=== PATIENT | female | born 1945 | race Caucasian/White ===

== ENCOUNTER → 2016-12-17 | Outpatient (CLI) | payer MEDICARE, OTHER ==
[~2016-12-17] MED LIST: AMOXICILLIN500 M1 PO; ASPIRIN (CHILDR81 MG PO; ASPIRIN325 MG PO; ECOTRIN325 MG PO; GLUCOPHAGE XR750 MG PO; HYZAAR 100-251 EACH PO; HYZAAR 50-12.51 EACH PO; JANUVIA 100 MG100 MG PO; LIPITOR40 MG PO; LOPRESSOR100 MG PO; NORCO 5-325 TA1 EACH PO; NORVASC5 MG PO; SULINDAC150 MG PO; TYLENOL EXTRA500 MG PO; TYLENOL325 MG PO
== END | disposition disaster alternative care site (69) ==
LOC: GBCOE 15:54
DX: Z12.31 Encounter for screening mammogram for malignant neoplasm of breast (principal)
CPT/HCPCS: G0202

== ENCOUNTER 2016-12-25 12:49 | Inpatient (IN) | payer MEDICARE, OTHER ==
[~2016-12-25] VITALS: Ht 154.9 cm; Wt 45.0 kg
--- NOTE | ~2016-12-25 | DS ---
PATIENT'S NAME: LENA PERDOMO [facility] AGE: 71 Y [address] ROOM: [address] [place], [place] [address] [place] [facility] [place]: 12/27/2016 Discharge Summary DISCHARGE DATE: 12/28/2016 FAMILY PHYSICIAN: Waldemar Serna MD ATTENDING PHYSICIAN: Casey ROSEN CONSULTANTS: Dr. Dill. FINAL DIAGNOSES: 1. Encephalopathy secondary to new seizure disorder, now resolved. 2. Diabetes mellitus, uncontrolled. 3. Escherichia coli cystitis. 4. Essential hypertension. 5. Dyslipidemia. 6. History of cerebrovascular accident. 7. Protein-calorie malnutrition, moderate. HOSPITAL COURSE: Please see details of admission in H and P by Dr. Rosen. Briefly, the patient was admitted in encephalopathic state. She was started on IV fluids and pancultured. She was started on ceftriaxone. We did get an EEG for possible seizure. Neurology consulted, did agree with the assessment and started her on Keppra 1000 mg twice daily. The patient was started on Lipitor and aspirin to rule out stroke. Carotid Dopplers and echo were obtained. The patient was continued on her home medications once speech and swallowing had been evaluated. On hospital day #2, the patient was feeling somewhat better, just weak. She denied any tremor. She was working with therapies. Did diagnose a gram-negative cystitis and continued with the ceftriaxone. Glucerna was initiated with meals. On hospital day #2, the patient did start back on some metformin. She was feeling significantly better and ambulating with therapies. The patient did have some cognitive deficits that were concerning for discharge to home and independent living. Discussion with family ensued, and it was felt the patient would best be suited for fdc facility for continued convalescences. On 12/28, we were able to get her to [facility] assisted Facility under the care of Dr. Waldemar Serna. The patient and family were agreeable to this plan, and the patient was discharged in stable condition. DIAGNOSTICS: Two view of the chest were normal. CT of the head without contrast on December 25 showed no acute findings, progressive senescent changes. An MRI of the head on the without contrast showed moderate-to- advance senescent matter changes, an old left occipital and left cerebellar ischemic event. No acute hemorrhages, masses, or findings noted. Blood sugars ranged from 142-284. On admission, chemistry panel was within normal limits. Labs remained stable throughout her stay. Albumin level was 2.9. PATIENT'S NAME: LENA PERDOMO [facility] AGE: 71 Y [address] ROOM: [address] [place], [place] [address] [place] [facility] [place]: 12/27/2016 Discharge Summary DISCHARGE DATE: 12/28/2016 FAMILY PHYSICIAN: Waldemar Serna MD ATTENDING PHYSICIAN: Casey ROSEN Cardiac enzymes were within normal limits. Hemoglobin A1c was 7.1. TSH and free T4 were within normal limits and vitamin B12 was within normal limits. Hemoglobin on admission was 15 and on the day of discharge, it was down to 11. Urinalysis was nitrite positive, and positive for leukocyte esterase, protein, and ketones. On culture, it did show E coli, 50 to 100,000 colonies. Blood cultures were negative. RPR was negative. DISCHARGE INSTRUCTIONS: The patient was discharged to [facility] under Dr. Waldemar Serna with Dr. Dill following. Her diet is diabetic. Code status is full code. Weightbearing status is as tolerated with fall precautions in place. We will continue occupational and physical and speech therapies. Use oxygen as needed to maintain sats greater than 90%. Do Accu-Cheks a.c. and h.s. The patient's rehab potential is good. Discharge potential is good. The patient and family are aware of her condition and prognosis on discharge. DISCHARGE MEDICATIONS: 1. Norvasc 5 mg daily. 2. Aspirin 81 mg daily. 3. Lipitor 40 mg daily. 4. Keppra 1000 mg twice daily. 5. Metoprolol 100 mg twice daily. 6. Tylenol 650 mg twice daily p.r.n. 7. Cipro 500 mg p.o. twice a day for three days. 8. Ultram 50 mg q.12 hours p.r.n. for three days. We do appreciate participating in this patient's care. Thank you very much for the ability to serve her while hospitalized at the [facility]. Time spent coordinating details of the discharge was 37 minutes of which was spent coordinating with consulting physicians, care management, completion of medication reconciliation, and education to the patient and family on the above-mentioned diagnoses. SAVI DUNN FOR MD NANCY SALGUERO/modl /[id number] d: 12/29/16 0254 t: 01/09/17 1240, DISCHARGE SUMMARY
--- NOTE | ~2016-12-25 | ECHO ---
Transthoracic Echocardiography Report (TTE) Demographics Patient Name LENA PERDOMO Date of Study 12/26/2016 Patient Number [id number] Visit Number [id number] Date of 1945 Room Number G3204 Gender Female Number Age 71 year(s) Referring Silas Peña Project Analyst Traci Jiménez, Physician RT,RVT,RDCS Physician Interpreting Olive Lovelace A Apartment Leasing Manager Physician MD Supervising Ordering Silas Peña MD/MLP Physician Nurse Stress Phlebotomist Supervisor/Instructor Conclusions Contractility Score Summary Normal Left Ventricular contractility was noted. Summary The estimated left ventricular ejection fraction is 65%. Mild concentric left ventricular hypertrophy. Trivial tricuspid regurgitation by color Doppler. Procedure Type of Study TTE procedure:2D Echocardiogram, M-Mode, Doppler , Color Doppler. Procedure Date Date: 12/26/2016 Start: 10:33 AM Study Location: Inpatient Portable Technical Quality: Good visualization Indications:CVA. Additional Indications:Possible syncope. Appropriate Use Criteria: 9 Patient Status: Routine HR: 61 bpm BP: 156/88 mmHg M-Mode/2D Measurements LV Diastolic Dimension: 3.4 cm LV Systolic Dimension: 2.24 cm LV Septum Diastolic: 1.15 cm LV PW Diastolic: 1.2 cm AO Root Dimension: 2.9 cm Cardiac Output: 5 l/min AV Cusp Separation: 1.7 cm RV Diastolic Dimension: 2.49 cm LA volume: 34 ml MV EPSS: 0.2 cm LVOT: 2 cm LVOT VTI: 26.1 cm LV Stroke volume: 81.95 ml Doppler Measurements AV Peak Velocity: 1.22 m/s MV Peak E-Wave: 0.75 m/s AV Peak Gradient: 5.95 mmHg MV Peak A-Wave: 0.75 m/s AV Mean Gradient: 3 mmHg MV E/A Ratio: 1.01 LVOT Peak Velocity: 1.01 m/s MV P1/2t: 73 msec TR Gradient:13.99 mmHg PV Peak Velocity: 0.81 m/s Estimated RAP:10 mmHg PV Peak Gradient: 2.6 mmHg Estimated RVSP: 24 mmHg Estimated PASP: 23.99 mmHg E' Septal Velocity: 0.06 m/s A' Septal Velocity: 0.09 m/s MV E/E' Ratio: 13.2 Findings Left Ventricle Mild concentric left ventricular hypertrophy. Diastolic assessment reveals Grade I diastolic dysfunction . Right Ventricle Normal right ventricle structure and function. Left Atrium Normal left atrial size. Right Atrium Normal right atrial size. Mitral Valve Normal mitral valve structure and function. Aortic Valve Normal aortic valve structure and function. Tricuspid Valve Trivial tricuspid regurgitation by color Doppler. Pericardial Effusion No evidence of pericardial effusion. Miscellaneous Visualized portions of the aortic root and ascending aorta appear normal in size. Pleural Effusion No evidence of pleural effusion. Contractility Score LV regional wall motion:(0-Non visualized 1-Normal 2-Hypokinesis 3-Akinesis 4-Dyskinesis 5-Aneurysm) Signature dtt: Anatoly Schaefer dtd: 12/26/16 1033 Physician Self Edit
--- NOTE | ~2016-12-25 | NDGEN ---
PATIENT'S NAME: LENA RIDLEY [facility] AGE: 71 Y [address] ROOM: [address] [address] LOCATION: [facility] [place] ADMIT DATE: 12/25/2016 Neurodiagnostics DISCHARGE DATE: FAMILY PHYSICIAN: DEANN WEINSTEIN MD ATTENDING PHYSICIAN: Casey PHAM PROCEDURE: ELECTROENCEPHALOGRAM DATE OF PROCEDURE: 12/26/2016 CLINICAL DIAGNOSIS: TIME: 9:22 a.m. INDICATION: Ms. Ridley is a 71-year-old female patient who had a new onset of a seizure on the morning prior to the day of this test. She has no history of seizures. At the time of having this EEG, she had been placed on antiepileptic medication, Keppra. It is possible that the patient had a small left posterior stroke in the distant past. FINDINGS: This EEG was an 18-lead EEG which was done with the patient being somewhat poorly cooperative. Photic stimulation was done at the end of the study. There was a lot of movement artifact throughout the study and the best area to determine the background rhythm appeared to be within the posterior leads. Posterior lead rhythm revealed 8-9 hertz approaching alpha rhythm with normal amplitudes of 25-30 microvolts. This rhythm remained stable throughout the whole recording. Yet, there were occasional blinking artifacts in the frontal eye longoria, obscured the reading. Appeared to be [id number]-svd-[id number] pattern seen, particularly in the posterior right occipital longoria, that would march along periodically. These appeared to be epileptiform in nature. There were no seizures recorded, and the rhythm remained stable throughout. IMPRESSION: There appeared to be spikes that would occasionally be seen in the occipital region of the brain, more specifically into the right parietal and occipital lobes. It should be noted that the patient did have a stroke in the left occipital lobe, so the clinical correlation is unclear. No other clear epileptiform features were seen and no seizures were recorded. Otherwise, the background rhythm was within normal speed and amplitude. YOLIE MOONEY MD PATIENT'S NAME: LENA RIDLEY [facility] AGE: 71 Y [address] ROOM: [address] [address] LOCATION: [facility] [place] ADMIT DATE: 12/25/2016 Neurodiagnostics DISCHARGE DATE: FAMILY PHYSICIAN: DEANN WEINSTEIN MD ATTENDING PHYSICIAN: Casey PHAM /[id number] dtt: 12/27/16 1444 , YOLIE MOONEY dtd: 12/26/16 1757
--- NOTE | ~2016-12-25 | ER ---
PATIENT'S NAME: LENA PERDOMO [facility] AGE: 71 Y [address] ROOM: [place] [address] LOCATION: [facility] [place] ADMIT DATE: 12/25/2016 ER/Outpatient Report DISCHARGE DATE: FAMILY PHYSICIAN: DEANN WEINSTEIN MD ATTENDING PHYSICIAN: Casey PHAM Admission date and time documented in the medical record. I saw the patient at 1300 hours. CHIEF COMPLAINT: Confusion, not eating or drinking over the past 2 days, unkempt, incontinent stool and urine. HISTORY OF PRESENT ILLNESS: This patient is a 71-year-old female, who lives alone in her home, self- sufficient. Her family knocked on her door yesterday and there was no answer. They thought that she was gone. They came to her house today and found her lying on the bedroom floor in her home. She was confused. She was unable to give any history of what happened over the past 2 days. The daughter said it looked like she had not ate or drank very much over the past 2 days. She was last known to be normal on 12/23/2016. The patient was brought to the emergency room by a private vehicle for evaluation. The patient was obviously incontinent of stool and urine. She had mental status change with confusion, disorientation, and just seemed apathetic, which was not her norm. Daughter says that this is not her normal physical and mental condition. She was unkempt, had her bra backwards, and other unusual presentations. The patient denies headache, eyes, ears, nose, throat, neck pain, chest pain, back pain, abdominal pain. She had no fever here in the emergency department. The patient was disoriented to place and time. She did not know her age. She was able to follow commands fairly well. She has a history of non-insulin- dependent diabetes mellitus type 2, on metformin. Her Accu-Chek was in the 140s, I believe. She has no history of stroke, TIA, or seizure disorder. No psych issues. HOME MEDICATIONS: See attached medication list. ALLERGIES: NONE. SOCIAL HISTORY: Nonsmoker and nondrinker. SIGNIFICANT PAST MEDICAL HISTORY: Zot-uilynxd-amnmbffyz diabetes mellitus type 2, hypertension, dyslipidemia, PATIENT'S NAME: LENA PERDOMO [facility] AGE: 71 Y [address] ROOM: [address] [place], [place] [address] LOCATION: [facility] [place] ADMIT DATE: 12/25/2016 ER/Outpatient Report DISCHARGE DATE: FAMILY PHYSICIAN: DEANN WEINSTEIN MD ATTENDING PHYSICIAN: Casey PHAM osteoporosis. OPERATIONS: Breast biopsy, left total hip arthroplasty. ROS: Unable to get review of systems from the patient, but essentially are negative except for that stated in the history of the present illness. PHYSICAL EXAMINATION: VITAL SIGNS: Temperature 97.8, tympanic; pulse 86; respirations 16; blood pressure 155/87; O2 saturation on room air is 100%. HEAD: Normocephalic. EYES: Extraocular muscles are intact. PERRL. Sclerae and conjunctivae are clear and nonicteric. EARS, NOSE, THROAT: Clear. Mucous membranes are dry. NECK: No nuchal rigidity. No thyromegaly or cervical adenopathy. No tenderness. SPINE: Negative. LUNGS: Clear. Good air flow. No rales, rhonchi, or wheezes. HEART: Regular. Pulses are palpable. No chest wall or ribcage pain to palpation. ABDOMEN: Soft, nondistended, nontender. Good bowel tones. No organomegaly or abnormal masses palpable. EXTREMITIES: Without peripheral edema, cyanosis, or deformity. NEURO: The patient is awake, cooperative. She is confused and disoriented to place and time. No lateralizing weakness, numbness, tingling, or loss of function. Motor and sensory appears to be intact. NIH stroke scale is 4. SKIN: Clear. : The patient was incontinent, has stool on her legs and feet, smell of urine. LABORATORY DATA AND X-RAYS: CT scan of the head showed no acute bleed, midline shift, mass effect, or skull fracture. I did do an MRI scan of the brain that showed advanced white matter disease and moderate atrophy. No bleed, tumor, or mass. CT scan and MRI scans were read by Radiology, see dictated transcribed reports. Arterial blood gases showed a pH of 7.43, pCO2 of 35, pO2 of 85 with an O2 saturation of 97%. Urine showed 5-10 whites, 5-10 reds, 0-2 epithelial cells, few bacteria, 2+ amorphous material per high-powered field, positive nitrites on dipstick. Culture pending. Two blood cultures drawn, results are pending. Procalcitonin was less than 0.05. CMS was normal except for an elevated glucose of 143. Elevated BUN of 30. CK-MB was 1.5. CRP was 1.07. Thyroid was normal. ProBNP was elevated at 660. White count was 9900, 82 segs, 11 PATIENT'S NAME: LENA PERDOMO [facility] AGE: 71 Y [address] ROOM: [address] [address] LOCATION: [facility] [place] ADMIT DATE: 12/25/2016 ER/Outpatient Report DISCHARGE DATE: FAMILY PHYSICIAN: DEANN WEINSTEIN MD ATTENDING PHYSICIAN: Casey PHAM, 7 monos, hemoglobin was 15 with hematocrit 43.9, platelet count is 187,000. Sedimentation rate was 17. PTT was 23. Pro-time is 10.1 with an INR of 0.96. EKG showed sinus rhythm. No acute ST elevation, ischemic change, or arrhythmia. Chest x-ray showed no acute infiltrate or changes. EMERGENCY DEPARTMENT COURSE: I did start the patient on IV normal saline, fluids 1 L then at 150 mL an hour. IMPRESSION: 1. Altered mental status, etiology uncertain. 2. Dehydration with poor fluid and solid oral intake over the past 2 days. 3. Incontinence of stool and urine. 4. Hypertension. 5. Bbu-tlftryv-qlpollvho diabetes mellitus type 2. 6. Dyslipidemia. 7. Osteoporosis. PLAN: Discussed the patient with hospitalist, Dr. Wilde. Dr. Wilde is coming to the emergency room to evaluate the patient and admit the patient to the hospital for further evaluation and treatment. Discussion ensued with the patient and her family in regard to my findings and recommendations, they understand. Accumulated critical care time 30 minutes. CORBIN TAYLRO MD SDS/modl /[id number] d: 12/25/16 2353 t: 12/26/16 0604, OUTPATIENT REPORT
--- NOTE | ~2016-12-25 | HP ---
PATIENT'S NAME: LENA PERDOMO [facility] AGE: 71 Y [address] ROOM: [place] [address] [place] [facility] [place] DATE: 12/25/2016 History & Physical DISCHARGE DATE: FAMILY PHYSICIAN: DEANN WEINSTEIN MD ATTENDING PHYSICIAN: Casey PHAM DATE OF SERVICE: CHIEF COMPLAINT: Altered mental status. HISTORY OF PRESENT ILLNESS: The patient is a 71-year-old female with past medical history of osteoporosis, diabetes mellitus type 2, hyperlipidemia, hypertension, and history of CVA; diagnosed today on MRI; who presents here with altered mental status. The patient is a poor historian and does not remember the events that happened. Most of the information is acquired from the family member, especially daughter. Apparently, the patient was in good health on Saturday, last seen well was Saturday evening; however, the patient was found down today at home on the floor with urinary and bowel incontinence. The patient was found to be confused and somnolent. The patient was unable to answer appropriately to a family member and could not explain what had happened. Ambulance was called in and the patient was brought into our emergency department for further evaluation. In the emergency department, the patient is somewhat alert and oriented. Continued to deny the occurrence of what happened at home. She thinks she is here because she was brought here by her family member. Upon further investigation and discussion with the family member, the patient was in good health on Saturday. They reported that she might have some forgetfulness in the past, but report that she is alert and awake and is able to do her daily activities and lives by herself, cook for herself, and handle her finances. PAST MEDICAL HISTORY: 1. Osteoporosis. 2. Diabetes mellitus type 2. 3. Hyperlipidemia. 4. Hypertension. 5. Distant history of CVA, diagnosed today on MRI. PAST SURGICAL HISTORY: Left hip surgery. FAMILY HISTORY: Hypertension and coronary artery disease in her father and dementia in her mother. PATIENT'S NAME: LENA PERDOMO [facility] AGE: 71 Y [address] ROOM: [place] [address] [place] [facility] [place]MIT DATE: 12/25/2016 History & Physical DISCHARGE DATE: FAMILY PHYSICIAN: DEANN WEINSTEIN MD ATTENDING PHYSICIAN: Casey PHAM SOCIAL HISTORY: Does not smoke. Does not drink alcohol. 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 MEDICATIONS: See MAR. REVIEW OF SYSTEMS: All systems have been reviewed and are negative except for what is mentioned in the HPI. PHYSICAL EXAMINATION: VITAL SIGNS: Temperature is 98.6, blood pressure 139/85, heart rate of 77, and respiratory rate of 20. GENERAL: The patient is alert and awake, in no acute distress. HEAD: Normocephalic and atraumatic. EYES: Sclerae nonicteric. Extraocular muscles intact. NASAL: No nasal discharge. Top of nasal bridge showed some mild bruising. NECK: No JVD. CHEST: Clear to auscultation bilaterally. HEART: Regular rate and rhythm. No murmurs, rubs, or gallops heard. ABDOMEN: Soft, nontender, and nondistended. Bowel sounds present. SKIN: Warm to touch. MUSCULOSKELETAL: Range of motion intact. No obvious effusion seen. TSO: The patient is alert and oriented x3. Motor and sensory are grossly intact. On evaluation of eye examination, the patient was not able to follow commands to fully examine her peripheral vision. LABORATORY DATA: ABG; pH of 7.43 and pCO2 of 35. CPK of 54. CBC shows white blood cell count of 9.9, hemoglobin of 15, and platelet of 187. Renal function panel shows BUN of 30, CO2 of 26, potassium of 3.7, sodium of 141, and creatinine of 0.8. UA shows white blood cell count 5 to 10. IMAGING: MRI shows progressive mild cerebral atrophy with senescent white matter disease since prior study. Also shows motor atrophy and advanced periventricular and senescent white matter disease. Shows old left occipital pole encephalomalacia, likely reflecting an old ischemic event. Also suspicious for old ischemic event in the cerebellum of the left side as well. ASSESSMENT AND PLAN: 1. The patient is a 71-year-old female with past medical history of diabetes, hyperlipidemia, hypertension, and osteopenia, who presents here PATIENT'S NAME: LENA PERDOMO [facility] AGE: 71 Y [address] ROOM: [place] [address] [place] [facility] [place]MIT DATE: 12/25/2016 History & Physical DISCHARGE DATE: FAMILY PHYSICIAN: DEANN WEINSTEIN MD ATTENDING PHYSICIAN: Casey PHAM with acute encephalopathy. Etiology most likely secondary to seizure- like activity as the patient was found down today with bowel and urinary incontinence and was found to have some confusion, which I suspect might be postictal confusion. The patient's mentation is improving currently compared to initial presentation. Etiology of seizure most likely secondary to history of old cerebrovascular accident. On further investigation and discussion with the family, the patient also had some unexplained fall in the past, which resulted on her left hip fracture. Thus, the patient might have some underlying seizure-like activity. We will acquire EEG. We will put the patient on seizure precaution. We will consult Neurology for possible seizure evaluation. Syncope is also entertained as a workup for also her history of cerebrovascular accident that is diagnosed today. We will also acquire echocardiogram and carotid vascular Doppler. I will keep the patient on telemonitor. 2. Old cerebrovascular accident. The patient and family are not aware of the patient having history of cerebrovascular accident, however, MRI shows possible old cerebrovascular accident. The patient is on Lipitor. We will increase Lipitor to 80 mg and add aspirin. Initial EKG shows normal sinus rhythm. We will keep the patient on telemonitor to assess for arrhythmia. We will acquire echocardiogram and carotid Doppler. 3. Hypertension, stable. Continue medication. 4. Hyperlipidemia. Continue medication. 5. Dehydration. The patient's BUN is noted to be elevated and the patient was found down. We were not actually quite sure for how long she has been down and I suspect she might be dehydrated. She is currently on IV fluids. 6. Urinary tract infection. The patient's UA shows pyuria. Given the presentation, we will treat for urinary tract infection. Urinary culture pending. The patient also on ceftriaxone. 7. Diabetes mellitus type 2, holding metformin, on sliding scale insulin. 8. Malnutrition. On physical, the patient was noted to be malnutrition. The patient has protein-calorie malnutrition. The patient currently on a general diet. Once stable, to have dietary consult. MD YESIKA MOTA/modl /[id number] D: [id number] T: [id number] HISTORY & PHYSICAL
[~2016-12-25 12:49] MED LIST changes: -AMOXICILLIN500 M1 PO; -ASPIRIN (CHILDR81 MG PO; -HYZAAR 100-251 EACH PO; -JANUVIA 100 MG100 MG PO; -NORVASC5 MG PO; -SULINDAC150 MG PO
[2016-12-25 13:29] LABS: BASOPHIL % 0.3 %; EOSINOPHIL % 0.1 %; HEMATOCRIT 43.9 % (33.0-46.0); IMMATURE GRANULOCYTE % 0.3 %; LYMPHOCYTE % 10.5 %; MCH 31.4 pg (27.0-34.0); MCHC 34.2 gm/dL (32.0-36.5); MONOCYTE # 0.7 K/uL (0.0-1.0); MONOCYTE % 6.7 %; NEUTROPHIL # (ANC) 8.2 K/uL (1.8-7.8); NEUTROPHIL % 82.1 %; NRBC % 0 /100WBC (0-0.00); PLATELET COUNT 187 K/uL (150-450); RDW-CV 12.5 % (11.9-14.6); WBC 9.9 K/uL (4.0-11.0)
[2016-12-25 13:31] LABS: RBC 4.77 M/uL (3.50-5.50)
[2016-12-25 13:35] LABS: INR - (THERAPEUTIC) 0.96 (0.92-1.07); PROTIME 10.1 SECONDS (9.8-11.4); PTT 23 SECONDS (25-32)
[2016-12-25 13:51] LABS: ALBUMIN 3.8 gm/dL (3.5-5.0); ALK PHOS 57 IU/L (33-138); ALT 14 IU/L (12-78); ANION GAP 16.7 (10.0-19.0); AST 12 IU/L (10-40); BLOOD UREA NITROGEN 30 mg/dL (6-24); CALCIUM 9.2 mg/dL (8.5-10.5); CHLORIDE 102 mMol/L (96-110); CO2 26 mMol/L (22-32); CREATININE 0.8 mg/dL (0.5-1.1); ESTIMATED GFR (MDRD EQUATION) > 60; POTASSIUM 3.7 mMol/L (3.7-5.1); SODIUM 141 mMol/L (135-145); TOTAL BILIRUBIN 0.8 mg/dL (0.0-1.5); TOTAL PROTEIN 7.1 g/dL (6.0-8.4)
[2016-12-25 14:20] LABS: BLOOD URINE 150 /UL (NEGATIVE); COLOR URINE YELLOW (YELLOW); GLUCOSE URINE NEGATIVE (NEGATIVE); KETONE URINE 150 mg/dL (NEGATIVE); LEUKOCYTES URINE 25 /UL (NEGATIVE); NITRITE URINE POSITIVE (NEGATIVE); PROTEIN URINE 500 mg/dL (NEGATIVE); TURBIDITY URINE 2+ (CLEAR); UROBILINOGEN URINE NORMAL (NORMAL)
[2016-12-25 14:53] LABS: AMORPHOUS URINE 2+ (NEGATIVE); BACTERIA URINE FEW (NEGATIVE); EPITHELIAL URINE 0-2 #/HPF (NEGATIVE)
[2016-12-25 16:09] LABS: BICARBONATE 23.2 mmol/L (18.0-23.0); PCO2 35 mmHg (35-45); PO2 85 mmHg (80-90)
--- NOTE | 2016-12-25 21:15 | NUR ---
71 Y/O FEMALE ADMITTED FOR ACUTE ENCEPHALOPATHY AND UTI. PT HAS HER THREE CHILDREN AT HER BEDSIDE & THEY STATE SHE SEEMS MENTALLY FOGGY TODAY BUT WAS FINE MENTALLY LAST SATURDAY. PT ALSO IS NOTED TO HAVE A BRUISE ON HER MID FOREHEAD BETWEEN HER EYES & A FAT LIP WITH A SORE ON HER LT BOTTOM LIP. WHEN ASKED PT DOES NOT REMEMBER FALLING OR BUMPING INTO ANYTHING IN THE PAST SEVERAL DAYS. ALLERGIES - [facility] SURGICAL & MEDICAL HISTORY - BRST BIOPSY 1969'S, BENIGN ABD TUMOR YRS AGO, LT PAN 08/19/16 FROM A FALL & LT HIP FRACTURE ON 08/18/16. HTN, HIGH CHOL, DMII DIAGNOSED IN THE FALL OF 2014, PT IS ON METFORMIN. OSTEOPOROSIS, ARTHRITIS. PT IS ABLE TO ANSWER QUESTIONS WHEN ASKED. REPORT GIVEN TO PT PRIMARY CARE NURSE JORDAN MOSS ADM EDUCATION DONE WITH PT & FAMILY
--- NOTE | 2016-12-26 04:22 | NUR ---
Significant Event: Patient is alert and oriented x 3. Forgetful. Patient stares off and is slow to respond at times. Needs verbal cues. Up with 1 assist, walker, and gait belt to bathroom. VSS on room air. On telemetry, no calls. Denies any pain. Left forearm IV with NS running at 100 ml/hr. Receiving intermittent IV antibiotics. ACHS accuchecks. Started on PO Keppra. On seizure precautions. No seizure activity noted this shift. Patient is cooperative with cares. Follow up: EEG, ECHO, and carotid doppler this am.
--- NOTE | 2016-12-26 14:58 | NUR ---
Significant Event: Patient is alert and oriented x3, forgetful at times, but has been really awake today. Negative CAM. Able to follow commands. The only command she was not able to follow was following my finger with her eyes. Her eyes stayed stationary. Unsteady when she walks and is wobbly. Working with PT and OT. Seizure precautions. Denies double vision today. EEG, carotid dopplers, and echo completed today. Bag and partial shower completed. Tele on, no calls. L)FA IV, fluids infusing. Needs a lot of verbal cues at times. Bed and chair alarms on. Accuchecks AC/HS. Cooperative with cares. Pleasant.
--- NOTE | 2016-12-26 15:47 | NUR ---
Received a consult to meet with patient's family to discuss possible placement. I met with maureen Newell and patient at 1240 today. Introduced myself and explained the role of the CM department. Osiris and I stepped out of the room to talk about placement options. She states that the family had thought patient was doing well caring for herself at home, but now they aren't so sure. Per Osiris patient has lost about 14 pounds in the past month or so. The family is just starting the process of looking at independent living apartments, CUSTODIAL, or SNF's. I did briefly explain to daughter that at this time patient is listed as observation and in order to meet the Medicare criteria for Medicare to help cover the initial 20 days at a SNF patient would need to be an inpatient status for 3 overnight stays. At this time we have not met that criteria. Osiris and I discussed looking at Independent Living apartments, CUSTODIAL's, SNF's and/or having caregivers come into the home. I explained to her, that at this time all of these options would be private/self pay for patient and family. I will leave a packet of material in patient's room for the family to look over. I provided them with a list of Caregivers from the [facility], and information from [facility], [facility], [facility], [facility], and [address] to give them an idea of cost. Will follow up with patient and family tomorrow. Osiris states she would also like help from dietary or nursing to talk to patient about maintaining at proper diet at home, getting dentures so she can eat more items, and getting her eyes checked. I will share this with the hospitalist following patient.
--- NOTE | 2016-12-27 04:08 | NUR ---
Significant Event: Patient alert and oriented at first, but becomes very confused at times. Stated she was not in her correct room and wanted to go to her other bed when trying to get her from the chair to bed. After in bed states that finally we put her in the right bed. Fine rest of night. Denies pain. Slept well. NEeds verbal cues when ambulating and needs reminders to go to the bathroom. NS running at 100ml to L) forearm. Telemetry on no calls. Seizure precuations. Vitals stable and on room air. ACHS accuchecks. On keppra. Bed alarm on. able to follow finger better on second neurocheck. Follow up: Monitor neuro checks
[2016-12-27 05:09] LABS: BASOPHIL % 0.4 %; EOSINOPHIL # 0.1 K/uL (0.0-0.5); EOSINOPHIL % 1.2 %; HEMOGLOBIN 10.1 g/dL (10.0-15.0); IMMATURE GRANULOCYTE % 0.3 %; LYMPHOCYTE # 1.9 K/uL (0.8-4.0); LYMPHOCYTE % 28.3 %; MCH 31.3 pg (27.0-34.0); MCHC 33.7 gm/dL (32.0-36.5); MCV 92.9 fl (83.0-98.0); MONOCYTE # 0.6 K/uL (0.0-1.0); MONOCYTE % 8.6 %; MPV 10.2 fl (9.4-12.4); NEUTROPHIL # (ANC) 4.2 K/uL (1.8-7.8); NEUTROPHIL % 61.2 %; NRBC % 0 /100WBC (0-0.00); PLATELET COUNT 125 K/uL (150-450); RBC 3.23 M/uL (3.50-5.50); RDW-CV 12.6 % (11.9-14.6); WBC 6.9 K/uL (4.0-11.0)
[2016-12-27 05:26] LABS: ANION GAP 10.3 (10.0-19.0); BLOOD UREA NITROGEN 21 mg/dL (6-24); CALCIUM 7.5 mg/dL (8.5-10.5); CHLORIDE 113 mMol/L (96-110); CO2 26 mMol/L (22-32); CREATININE 0.6 mg/dL (0.5-1.1); ESTIMATED GFR (MDRD EQUATION) > 60; POTASSIUM 3.3 mMol/L (3.7-5.1)
[2016-12-27 05:27] LABS: SODIUM 146 mMol/L (135-145)
--- NOTE | 2016-12-27 12:31 | NUR ---
Met with patient today while she sat in her recliner. Patient states that her plan is to return to her home in [place] at discharge. She states she has no desire to go to a halfway facility. She thinks that she will be able to care for herself at home. She states she still drives and helps care for her young grandchildren. I talked with her about a Life Line/Life Alert and she was agreeable to considering this. I will bring information about the Life Line to her room for her and family to review. At 1149 I had a phone call from Mckayla HOU stating she thinks patient needs to go to an CHUCK. I explained to Mckayla that I agree, but family does not have the funds to pay for an CHUCK. Patient is not able to go to a SNF at this time and have medicare help cover the cost because she has not had the three qualifying overnight stays as an inpatient. Will touch base with daughter Osiris to see what family plans to do for patient.
--- NOTE | 2016-12-27 16:10 | NUR ---
Significant Event:Is A/O but at times will answer questions with strange responses.IV put to SL this afternoon.Tele on,no calls.Has been amb with walker & 1 assist.Is incont of urine at times if not reminded to go to the bathroom.No c/o pain.Looking at going to skilled unit. Follow up:
--- NOTE | 2016-12-28 05:10 | NUR ---
Pt. AA&OX3 but confused at times and needs reorientating. Denies pain. Slept well with void x2. Incontinent both times. On TELE - no calls. IV L) S.L. RA. VSS. Appetite well. ACHS. Looking at going to skilled facility possibly today. Pleasant. Bed and chair alarm on at all times. 1A with walker and gaitbelt.
[2016-12-28 05:21] LABS: BASOPHIL % 0.4 %; EOSINOPHIL # 0.1 K/uL (0.0-0.5); EOSINOPHIL % 1.1 %; HEMATOCRIT 32.7 % (33.0-46.0); IMMATURE GRANULOCYTE % 0.2 %; LYMPHOCYTE # 1.7 K/uL (0.8-4.0); MCH 31.4 pg (27.0-34.0); MCHC 33.6 gm/dL (32.0-36.5); MCV 93.4 fl (83.0-98.0); MONOCYTE # 0.6 K/uL (0.0-1.0); MONOCYTE % 7.8 %; MPV 10.7 fl (9.4-12.4); NEUTROPHIL # (ANC) 5.8 K/uL (1.8-7.8); NEUTROPHIL % 70.5 %; NRBC % 0 /100WBC (0-0.00); PLATELET COUNT 138 K/uL (150-450); RDW-CV 12.6 % (11.9-14.6); WBC 8.2 K/uL (4.0-11.0)
[2016-12-28 05:39] LABS: ANION GAP 11.1 (10.0-19.0); BLOOD UREA NITROGEN 23 mg/dL (6-24); CHLORIDE 111 mMol/L (96-110); CO2 25 mMol/L (22-32); CREATININE 0.6 mg/dL (0.5-1.1); ESTIMATED GFR (MDRD EQUATION) > 60; POTASSIUM 4.1 mMol/L (3.7-5.1); SODIUM 143 mMol/L (135-145)
--- NOTE | 2016-12-28 07:56 | NUR ---
Yesterday at 1630 I ran into LAURA Tavera for [facility], in the parking lot and he states they can accept Melissa today. At 0740 I placed a call to daughter Osiris and let her know that [facility] can accept and asked if family is in agreement. Osiris said yes, the family agrees with transfer to [facility]. Osiris is planning on working the morning and then being here by 1300. She would like for us to try to discharge in the afternoon so she can be here with patient. I placed a call to LAURA Tavera at [facility] [phone] at [phone], but he was not in yet. I left him a voicemail asking him to call me with a cotton picking machine operator time for patient. I let him know that family prefers a discharge time of early afternoon if their van is available. Will wait to here back from [facility]. Packet is started and ID screen is in packet.
--- NOTE | 2016-12-28 12:33 | NUR ---
Pt.is A/O but at times does get alittle mixed up or forgetful.Has some Lt.shoulder discomfort today.She thinks maybe she layed on it wrong last nite.Has been up with 1 assist & walker.Is eating & drinking well.At times she is incont.of urine.Was on accuchecks while in hospital.
--- NOTE | 2016-12-28 13:15 | NUR ---
Nurse to nurse report given to Janel at [facility] at 1300.Then Melissa was dismissed at 1315 per w/c to dedra meyer.by daughter & limb driver.Transfer papers were sent with [facility] ajay.
== END 2016-12-28 13:15 | DRG 71 ==
LOC: GMED 12:49 → GMSU 17:05
PROVIDERS: Emergency Medicine; Internal Medicine; ADMIT Internal Medicine
PROC: B246ZZZ Ultrasonography of Right and Left Heart (ICD-10-PCS; principal; 2016-12-26)
PROC: 4A00X4Z Measurement of Central Nervous Electrical Activity, External Approach (ICD-10-PCS; principal; 2016-12-26)
DX: G93.40 Encephalopathy, unspecified (principal); E44.0 Moderate protein-calorie malnutrition; N30.00 Acute cystitis without hematuria; E11.65 Type 2 diabetes mellitus with hyperglycemia; Z68.1 Body mass index [BMI] 19.9 or less, adult; G40.909 Epilepsy, unspecified, not intractable, without status epilepticus; Z86.73 Personal history of transient ischemic attack (TIA), and cerebral infarction without residual deficits; M19.90 Unspecified osteoarthritis, unspecified site; E78.5 Hyperlipidemia, unspecified; I10 Essential (primary) hypertension; E86.0 Dehydration; Z79.4 Long term (current) use of insulin; B96.20 Unspecified Escherichia coli [E. coli] as the cause of diseases classified elsewhere
CPT/HCPCS: G0378; G8978; G8979; G8980; G8984; G8985; G8986; G9168; G9169; G9170; J0696; J1644; J7030

== ENCOUNTER 2017-01-25 21:07 | Observation (INO) | payer MEDICARE, OTHER ==
[~2017-01-25] VITALS: Ht 154.9 cm; Wt 44.5 kg
--- NOTE | ~2017-01-25 | ER ---
PATIENT'S NAME: LENA PERDOMO [facility] AGE: 71 Y [address] ROOM: [address] [place], [place] [address] [place] [facility] [place]: 01/25/2017 ER/Outpatient Report DISCHARGE DATE: FAMILY PHYSICIAN: PHYSICIAN, UNKNOWN ATTENDING PHYSICIAN: NELSON TELLES Admission Time: 2107 hours. Time of Evaluation: 2130 hours. CHIEF COMPLAINT: Nausea, vomiting, generalized weakness. HISTORY OF PRESENT ILLNESS: Lena is a 71-year-old, female who presents with her son and daughter to the emergency room with a 2-day history of nausea, vomiting, and generalized weakness. 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 Later on in the day in the evening, she started to have a little bit of generalized weakness and nausea. This morning and throughout the day, she has vomited multiple times, has become weaker and weaker. Her son and daughter tell me they did take her to the dentist today and she does have some infection in her upper gums in which she was started on amoxicillin 500 mg 1 p.o. t.i.d. She has just had 1 dose this evening around 7:00 p.m. The patient is a diabetic, blood sugar this morning was 111. The patient recently was hospitalized here at [facility], in which these records were reviewed by myself. I did review this also with Dr. Prater. The patient did have an EEG as there was a concern for a new underlying seizure disorder, but the EEG was negative. The patient did follow up with Dr. Prabhakar at [facility], in which she was taken off her Keppra twice daily on January 04, 2017. Upon presentation, Lena is alert, cooperative, but is showing some generalized weakness. Her family denies any seizure activity, there has been no falls or other trauma noted. Upon hospitalization here 1 month ago, she did have a urinary tract infection that did culture out E. coli. PAST MEDICAL HISTORY: 1. Osteoporosis. 2. Type 2 diabetes mellitus. 3. Hyperlipidemia. 4. Hypertension. 5. 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 6. Postoperative left hip surgery. ALLERGIES: SENSITIVITY TO PERCOCET. PATIENT'S NAME: LENA PERDOMO [facility] AGE: 71 Y [address] ROOM: [address] [place], [place] [address] [place] [facility] [place]: 01/25/2017 ER/Outpatient Report DISCHARGE DATE: FAMILY PHYSICIAN: PHYSICIAN, UNKNOWN ATTENDING PHYSICIAN: NELSON TELLES CURRENT MEDICATIONS: 1. Amoxicillin 500 mg 1 p.o. t.i.d., start on 01/25/2017. 2. Atorvastatin 40 mg 1 p.o. daily. 3. Sulindac 150 mg 1 p.o. b.i.d. 4. Metoprolol 100 mg 1 p.o. daily. 5. Amlodipine 5 mg 1 p.o. daily. 6. Losartan/hydrochlorothiazide 100/25 one p.o. daily. 7. Januvia 100 mg 1 p.o. daily. 8. Aspirin 81 mg 1 p.o. daily. 9. Tylenol 650 mg p.r.n. pain. SOCIAL HISTORY: The patient recently moved to [facility]. She is a nonsmoker, no alcohol use or illicit drug use. FAMILY HISTORY: Per previous records, there is a history of hypertension and coronary artery disease in her father, dementia in her mother. REVIEW OF SYSTEMS: All systems reviewed by myself and negative with the exception of those noted in the HPI. PHYSICAL EXAMINATION: VITAL SIGNS: Current weight 45.4 kg, temperature 100.5, pulse 103, respirations 18, and blood pressure 162/84, and she is 98% on room air. GENERAL: Lena is alert, cooperative, in no acute distress. SKIN: Overall is within normal limits, she is a little flushed to her cheeks. HEENT: Head; normocephalic, atraumatic. Eyes; sclerae are nonicteric. Conjunctivae are within normal limits. Pupils equal, round, and reactive to light, EOMs intact. Nose; nares are patent, no congestion noted. Mouth and throat; oropharynx is within normal limits, no redness or exudate noted. Tongue and buccal mucosa are dry. Lips are dry. Face; there is no facial asymmetry noted. NECK: Supple. No lymphadenopathy. No thyromegaly appreciated. CHEST AND LUNGS: Lung sounds are clear throughout. Respiratory rate and pattern is normal. HEART: Regular rhythm, slightly tachycardic but otherwise no murmurs or extra sounds noted. ABDOMEN: Flat, soft throughout. Bowel sounds active throughout. She does have some mild tenderness, generalized, but no focal tenderness. No rebound or rigidity noted. No CVA tenderness noted. EXTREMITIES: Lower extremities; circulation intact, no peripheral edema is present. NEUROLOGIC: Strength in upper and lower extremities is 5/5. Deep tendon PATIENT'S NAME: LENA PERDOMO [facility] AGE: 71 Y [address] ROOM: [address] [place], [place] [address] [place] [facility] [place]: 01/25/2017 ER/Outpatient Report DISCHARGE DATE: FAMILY PHYSICIAN: PHYSICIAN, UNKNOWN ATTENDING PHYSICIAN: NELSON TELLES reflexes intact. There are no focal deficits noted. Mood and affect; the patient is cooperative, pleasant. She is alert and oriented x4. DIAGNOSTIC DATA: Chest x-ray, 1 view, was obtained. There is no obvious effusions, infiltrate, or pneumothorax noted. Bony structures are intact. Heart size within normal limits. Official x-ray report is pending. LABORATORY DATA: WBC 8.2, hemoglobin 14.7, and platelets 192. Sodium 142, potassium 3.6, glucose 128, BUN 27, creatinine is 1.1. Amylase and lipase and cardiac enzymes are all negative. Procalcitonin is negative. Lactate is elevated 2.0. Urinalysis does show ketones. Urine Micro: Wbc's 2-5, bacteria moderate, mucus 4+, otherwise unremarkable. DIAGNOSTIC DATA: EKG was performed and just was reviewed with Dr. Prater. There are no acute changes, no ST elevation or depression, this was compared to her prior EKG. ASSESSMENT: 1. Generalized weakness. 2. Nausea and vomiting. 3. Fever. 4. Dental infection. PLAN: I did review all lab findings, x-ray findings, and EKG with Dr. Prater. The patient did receive 1 L of IV fluids along with Zofran 4 mg IV x1. The patient did report this has been helpful and there was no vomiting noted in the emergency room. She was able to take in a few ice chips, and we will go ahead and send her urine for culture. The patient does need to be monitored overnight, I do feel she would benefit from IV hydration and also to see if the vomiting will cease and she regains some strength. I did visit with Dr. Prater, and she is agreeable with plan of care. I did call and visit with Dr. Telles, the hospitalist working this evening and he is agreeable to plan of care. He would like us to admit her on observation, and he will see her on the floor. He does not have any further orders at this time. I visited with the family, they are agreeable with plan of care. She is a full code. The patient's condition is stable, please see further dictation by Dr. Telles. PAULO AVILEZ APRN FOR IRENE PRATER MD PATIENT'S NAME: LENA PERDOMO [facility] AGE: 71 Y [address] ROOM: [place] [address] [place] [facility] [place]: 01/25/2017 ER/Outpatient Report DISCHARGE DATE: FAMILY PHYSICIAN: PHYSICIAN, UNKNOWN ATTENDING PHYSICIAN: NELSON TELLES/trenton /[id number] d: 01/26/17245 t: 02/04/172001, OUTPATIENT REPORT
--- NOTE | ~2017-01-25 | HP ---
PATIENT'S NAME: LENA PERDOMO [facility] AGE: 71 Y [address] ROOM: [address] [address] LOC[place]: [facility] [place]MIT DATE: 01/25/2017 History & Physical DISCHARGE DATE: FAMILY PHYSICIAN: PHYSICIAN, UNKNOWN ATTENDING PHYSICIAN: NELSON TELLES DATE OF SERVICE: CHIEF COMPLAINT: Nausea and vomiting. HISTORY OF PRESENT ILLNESS: This is a 71-year-old female who says that yesterday she was eating lunch, she had a sandwich a few hours later, she felt nauseous and chills and she vomited roughly 3 times of food content without blood. She also has been having poor appetite for the last few days as well. Yesterday, the patient went to see a dentist and she was told that she will need some procedure for her teeth. The patient was prescribed amoxicillin and the patient took one tablet. The patient continued to feel nauseous and poor appetite and family members were worried that the patient looks dehydrated and was unable to keep anything down due to nausea and vomiting. Last bowel movement was yesterday morning, it was normal stool without blood and it was formed. The patient was brought here due to the concern of dehydration and also poor appetite and also nausea and vomiting. The patient denies chest pain, shortness of breath, palpitation, abdominal pain, diarrhea, hematemesis, or coffee-ground emesis. The patient also denies any recent sick contact. REVIEW OF SYSTEMS: As mentioned in history of present illness. All other systems were reviewed and they were negative except those mentioned in history of present illness. PAST MEDICAL HISTORY: 1. Questionable seizure disorder. 2. Diabetes type 2. 3. Hypertension. 4. Hyperlipidemia. 5. Prior history of CVA without neurological deficit. ALLERGIES: NO KNOWN DRUG ALLERGIES. HOME MEDICATIONS: Will be reconciled in the morning. PATIENT'S NAME: LENA PERDOMO [facility] AGE: 71 Y [address] ROOM: [address] [address] LOC[place]: [facility] [place]MIT DATE: 01/25/2017 History & Physical DISCHARGE DATE: FAMILY PHYSICIAN: PHYSICIAN, UNKNOWN ATTENDING PHYSICIAN: NELSON TELLES SOCIAL HISTORY: The patient denies any history of smoking, illegal drug, or alcohol use. FAMILY HISTORY: The patient does not remember any important medical problem with either parents. PAST SURGICAL HISTORY: 1. Right shoulder surgery in the past. 2. Left side breast biopsy, which was benign. PHYSICAL EXAMINATION: VITAL SIGNS: At the time of my evaluation, was temperature 98.9, heart rate 89, respirations 16, blood pressure 192/92, saturation 97% on room air. GENERAL APPEARANCE: Alert and oriented x3, in no acute distress. HEENT: Pupils are equally round and reactive to light. Extraocular muscles are intact. Anicteric sclerae. Nasal turbinates are normal bilaterally. Dry oral mucosa. I do not see any evidence of abscess or drainage in the oral cavity. There are no oral sores either. NECK: No JVD. CARDIOVASCULAR: Regular rate and rhythm. Normal S1, S2. No murmur, no rubs, no gallops. RESPIRATORY: Clear. ABDOMEN: Soft, nontender, nondistended, normal bowel sounds, no hepatosplenomegaly. Bowel sounds are present. No mass. Soft. EXTREMITIES: No edema in the upper or lower extremities. NEUROLOGIC: Grossly nonfocal. SKIN: No ulcer, no rash, no cyanosis. MUSCULOSKELETAL: No joint pain. No muscle pain. Range of motion intact. LABORATORY DATA: Lactic acid 2.0. Troponin less than 0.04. CPK is 30. White blood cells 8.2, hemoglobin 14.7, hematocrit 42.9, MCV 92.7, and platelets 192. Glucose 128, BUN 27, creatinine 1.1. Sodium 142, potassium 3.6, chloride 101, CO2 27, calcium 9.5, total protein 7.7, albumin 3.7, AST 12, ALT 15, alkaline phosphatase 70, total bilirubin 0.8, GFR 49. Anion gap 17.6. Urinalysis: White blood cells 2-5, moderate bacteria. Negative nitrite, negative leukocyte. Procalcitonin less than 0.05. CK-MB less than 0.5. Amylase 65, lipase 118. IMAGING STUDIES: Chest x-ray on admission, the official report is pending. Based on my review, grossly unremarkable. PATIENT'S NAME: LENA PERDOMO [facility] AGE: 71 Y [address] ROOM: [place] [address] LOCATION: [facility] [place] ADMIT DATE: 01/25/2017 History & Physical DISCHARGE DATE: FAMILY PHYSICIAN: PHYSICIAN, UNKNOWN ATTENDING PHYSICIAN: NELSON TELLES ASSESSMENT AND PLAN: 1. Regarding her nausea and vomiting: Likely secondary to gastroenteritis or could be also secondary to amoxicillin. However, the patient's nausea and vomiting happened even before the amoxicillin intake. I am going to treat her as if she was having gastroenteritis. The patient does not look septic and the patient does not meet the criteria for sepsis. Therefore, I am not going to use any antibiotics for now. I will hydrate her with IV fluids and encourage oral intake and I will give her Ensure through one can 3 times a day with meals. We will get a PT and OT. Fall precaution. IV Zofran p.r.n. for nausea and vomiting. Further plan depends on clinical course. 2. Regarding her hypertension: Continue home blood pressure medication with holding parameter. I will also add IV hydralazine and IV labetalol p.r.n. for blood pressure control. 3. Regarding her questionable seizure: Home medication will be addressed and will be addressed once the list is ready. Currently, the patient is not in seizure. 4. Regarding her prior history of ischemic stroke: No active issue. Continue home medication, which the medication list will be addressed once it is ready. 5. Regarding her deep vein thrombosis prophylaxis: The patient will be getting Lovenox subcu. Time spent in care on the day of admission, 35 minutes including chart review, interviewing the patient, examining the patient, addressing all the question and concern the patient had, and also went over the plan of care with the patient and the nurse. I answered all of the patient's questions to her satisfaction. More than half of the time was spent in counseling and going over the plan of care and addressing all the patient's questions and concerns. The remaining of the time was spent on chart review and also on the physical examination and also on the interview. Further plan will depend on clinical course. NELSON TELLES MD CC/trenton /[id number] D: [id number] T: 650 HISTORY & PHYSICAL
[2017-01-25 22:08] LABS: BASOPHIL % 0.2 %; HEMOGLOBIN 14.7 g/dL (10.0-15.0); IMMATURE GRANULOCYTE % 0.4 %; LYMPHOCYTE % 12.2 %; MCV 92.7 fl (83.0-98.0); MONOCYTE # 0.4 K/uL (0.0-1.0); MONOCYTE % 4.3 %; MPV 10.8 fl (9.4-12.4); NEUTROPHIL # (ANC) 6.8 K/uL (1.8-7.8); NEUTROPHIL % 82.9 %; NRBC % 0 /100WBC (0-0.00); RDW-CV 12.4 % (11.9-14.6); WBC 8.2 K/uL (4.0-11.0)
[2017-01-25 22:09] LABS: HEMATOCRIT 42.9 % (33.0-46.0); MCH 31.7 pg (27.0-34.0); MCHC 34.3 gm/dL (32.0-36.5); PLATELET COUNT 192 K/uL (150-450); RBC 4.63 M/uL (3.50-5.50)
[2017-01-25 22:29] LABS: ALBUMIN 3.7 gm/dL (3.5-5.0); ALK PHOS 70 IU/L (33-138); ALT 15 IU/L (12-78); ANION GAP 17.6 (10.0-19.0); AST 12 IU/L (10-40); BLOOD UREA NITROGEN 27 mg/dL (6-24); CALCIUM 9.5 mg/dL (8.5-10.5); CHLORIDE 101 mMol/L (96-110); CO2 27 mMol/L (22-32); CPK 30 IU/L (21-215); CREATININE 1.1 mg/dL (0.5-1.1); ESTIMATED GFR (MDRD EQUATION) 49; POTASSIUM 3.6 mMol/L (3.7-5.1); SODIUM 142 mMol/L (135-145); TOTAL BILIRUBIN 0.8 mg/dL (0.0-1.5); TOTAL PROTEIN 7.7 g/dL (6.0-8.4)
[2017-01-25 22:49] LABS: BILIRUBIN URINE NEGATIVE (NEGATIVE); BLOOD URINE 10 /UL (NEGATIVE); COLOR URINE YELLOW (YELLOW); GLUCOSE URINE NEGATIVE (NEGATIVE); KETONE URINE 50 mg/dL (NEGATIVE); LEUKOCYTES URINE NEGATIVE /UL (NEGATIVE); NITRITE URINE NEGATIVE (NEGATIVE); PROTEIN URINE 30 mg/dL (NEGATIVE); SPEC GRAVITY URINE 1.015 (1.003-1.035); TURBIDITY URINE CLEAR (CLEAR); UROBILINOGEN URINE NORMAL (NORMAL)
[2017-01-25 22:57] LABS: RBC URINE 0-2 #/HPF (NEGATIVE)
[2017-01-25 22:58] LABS: BACTERIA URINE MODERATE (NEGATIVE); MUCUS URINE 4+ (NEGATIVE)
[2017-01-25 22:59] LABS: GRANULAR CASTS URINE 0-2 #/LPF (NEGATIVE)
[2017-01-26] MEDS ORDERED: HYZAAR 100-251 EACH PO (00:21)
[2017-01-26] MEDS ORDERED: AMOXICILLIN500 M1 PO (00:24)
[2017-01-26] MEDS ORDERED: JANUVIA 100 MG100 MG PO (00:24)
[2017-01-26] MEDS ORDERED: NORVASC5 MG PO (00:25)
[2017-01-26] MEDS ORDERED: ASPIRIN (CHILDR81 MG PO (00:26)
[2017-01-26] MEDS ORDERED: LIPITOR40 MG PO (00:26)
[2017-01-26] MEDS ORDERED: SULINDAC150 MG PO (00:27)
--- NOTE | 2017-01-26 01:04 | NUR ---
Pt admitted from er, brought to floor by cart, iv to left upper arm. pt alert and oriented x3.pt son and daughter with pt. pt moved into [place] last night into the independent side.daughter states that pt has had some teeth issues and went to the dentist today and found that she had an infection in her mouth, pt was prescribed amoxicillin and started this today. pt has had n/v for the past 24 hours. along with increased weakness. pt was able to walk from the er cart to the bed. vss. daughter states that pt probably hasnt kept any medication down for the past 2 days. lung sounds clear/diminished. bowel sounds present x4 quadrants. pt cont of bowel and bladder. no oepn areas noted to skin, back of bilateral heels are slightly red. vss stable up on arrival as well. pt states understanding of call light system. call light in reach.
--- NOTE | 2017-01-26 05:19 | NUR ---
Significant Event:pt has continues to rest well for rest of shift, 1 emesis folling taking medication, pt cont of urine. denies pain when asked. bp to be taked q1h till 8am to monitor bp. vss thus far. iv to left upper arm running lr at 75ml hr. with no complication noted. pt alert and orieted. uses call light approp. denies wanting zofran at this time, states she just needs to sleep. pt does return to sleep with no complications and is resting well. lung sounds continue to be clear, bowel sounds active. call light in reach. Follow up:
[2017-01-26 08:21] LABS: ANION GAP 14.9 (10.0-19.0); BLOOD UREA NITROGEN 23 mg/dL (6-24); CALCIUM 8.6 mg/dL (8.5-10.5); CHLORIDE 106 mMol/L (96-110); CO2 27 mMol/L (22-32); CREATININE 0.8 mg/dL (0.5-1.1); MAGNESIUM 1.8 mg/dL (1.8-2.6); PHOSPHORUS 2.9 mg/dL (2.5-4.9); POTASSIUM 3.9 mMol/L (3.7-5.1); SODIUM 144 mMol/L (135-145)
[2017-01-26 08:23] LABS: ESTIMATED GFR (MDRD EQUATION) > 60
--- NOTE | 2017-01-26 16:58 | NUR ---
Significant Event: PT ALERT AND ORIENTED. UP IN THE RECLINER THIS SHIFT. ANN WELL. TIRED MOST OF THE SHIFT. NO NAUSEA OR VOMITING NOTED. STATES FEELS BETTER TODAY. IV FLUIDS DECREASED TO 50CC /HR. FAMILY IN THE ROOM MOST OF THIS SHIFT. VOIDS WELL INC OF URINE AT INTERVALS. AMBULATED IN THE HALLS WITHOUT DIFFIUCLTY, Follow up:
[2017-01-27 04:37] LABS: BASOPHIL % 0.5 %; EOSINOPHIL # 0.1 K/uL (0.0-0.5); EOSINOPHIL % 1.3 %; HEMOGLOBIN 11.2 g/dL (10.0-15.0); IMMATURE GRANULOCYTE % 0.3 %; LYMPHOCYTE # 2.1 K/uL (0.8-4.0); LYMPHOCYTE % 32.9 %; MCH 31.3 pg (27.0-34.0); MCV 94.1 fl (83.0-98.0); MONOCYTE # 0.5 K/uL (0.0-1.0); MONOCYTE % 7.9 %; MPV 10.7 fl (9.4-12.4); NEUTROPHIL # (ANC) 3.6 K/uL (1.8-7.8); NEUTROPHIL % 57.1 %; NRBC % 0 /100WBC (0-0.00); RBC 3.58 M/uL (3.50-5.50); RDW-CV 12.4 % (11.9-14.6); WBC 6.3 K/uL (4.0-11.0)
[2017-01-27 04:38] LABS: HEMATOCRIT 33.7 % (33.0-46.0); MCHC 33.2 gm/dL (32.0-36.5); PLATELET COUNT 146 K/uL (150-450)
--- NOTE | 2017-01-27 04:49 | NUR ---
Significant Event:pt is a/o x3. no c/o n/v or pain. iv to l upper arm has lr @ 50ml. accuchecks ac/hs last bs was 220 with 2 units given. plan for possible discharge home today. pt hypotensive at second assesment of 92/57 vss. pt is a 1 assist/sba with walker. Follow up:possible discharge home today.
[2017-01-27 04:57] LABS: ANION GAP 10.6 (10.0-19.0); BLOOD UREA NITROGEN 20 mg/dL (6-24); CALCIUM 8.3 mg/dL (8.5-10.5); CHLORIDE 106 mMol/L (96-110); CO2 30 mMol/L (22-32); CREATININE 0.8 mg/dL (0.5-1.1); ESTIMATED GFR (MDRD EQUATION) > 60; MAGNESIUM 1.7 mg/dL (1.8-2.6); POTASSIUM 3.6 mMol/L (3.7-5.1); SODIUM 143 mMol/L (135-145)
--- NOTE | 2017-01-27 13:33 | NUR ---
pt and her family given discharge instructions a nd voice understanding. pt escorted to the front door by transmission calibration engineer. family a her side.
== END 2017-01-27 12:13 | disposition disaster alternative care site (69) ==
LOC: GMED 21:07 → GMSU 23:22
PROVIDERS: Hospitalist; Nurse Practitioner Family; ADMIT Internal Medicine
DX: K52.9 Noninfective gastroenteritis and colitis, unspecified (principal); I10 Essential (primary) hypertension; E78.5 Hyperlipidemia, unspecified; E11.9 Type 2 diabetes mellitus without complications; Z86.73 Personal history of transient ischemic attack (TIA), and cerebral infarction without residual deficits; Z79.899 Other long term (current) drug therapy; Z98.890 Other specified postprocedural states
CPT/HCPCS: G0378; G8978; G8979; G8980; G8987; G8988; G8989; J1650; J2405; J7030; J7120